=== PATIENT | female | born 1980 | race Caucasian/White ===

== ENCOUNTER → 2020-12-08 16:04 | Outpatient (CLI) | payer OTHER, SELFPAY ==
[2020-12-08] MEDS: COVID-19 VACC #1, MRNA(MOD) 100 MCG/0.5 ML VIAL IM (16:10)
== END ==
PROVIDERS: PCP Registered Nurse; Visit Provider Internal Medicine
DX: Z23 Encounter for immunization (principal)
CPT/HCPCS: 0011A; 91301

== ENCOUNTER → 2021-01-05 15:25 | Outpatient (CLI) | payer OTHER, SELFPAY ==
[2021-01-05] MEDS: COVID-19 VACC #2, MRNA(MOD) 100 MCG/0.5 ML VIAL IM (15:31)
== END ==
PROVIDERS: PCP Registered Nurse; Visit Provider Internal Medicine
DX: Z23 Encounter for immunization (principal)
CPT/HCPCS: 0012A; 91301